=== PATIENT | male | born 1985 | race Caucasian/White ===

== ENCOUNTER 2018-01-19 12:04 | Emergency (ER) | payer SELFPAY ==
[~2018-01-19] VITALS: Ht 182.9 cm; Wt 81.6 kg
[2018-01-19] MEDS ORDERED: Tetanus/Diptheria/Pertussis Vaccine 0.5ml Syr IM ONE (12:30)
[2018-01-19] MEDS ORDERED: Bacitracin Oint UD TOPIC ONE (12:30)
--- NOTE | 2018-01-19 12:32 | Emergency Room Report ---
History of Present Illness General Chief Complaint: Animal Bite Present Illness HPI 32 YO male presents to the ED C/O squirrel bite around 10 am this morning. pt. reports he was feeding the squirrel and was bite. He denies pain. He sates that it did not bleed. Pt. states he had his tetanus vaccination years ago when he was in school. pt. Denies allergies to medications. the bite was sustained on the right middle finger. pt. is right hand dominant. Pt. states he tried to clean the wound but only had perfume and he sprayed that because it has alcohol. Allergies: Coded Allergies: No Known Allergies (Unverified , 01/19/18) Patient History Past Medical History: see triage record Past Surgical History: none Pertinent Family History: none Reviewed Nursing Documentation: PMH: Agreed; PSxH: Agreed Review of Systems All Other Systems: negative except mentioned in HPI Physical Exam Vital Signs Date Time Temp Pulse Resp B/P (MAP) Pulse Ox O2 Delivery O2 Flow Rate FiO2 01/19/18 12:10 98.4 70 16 125/85 95 Room Air 98.4 Sp02 EP Interpretation: reviewed, normal General Appearance: no apparent distress, alert, GCS 15, non-toxic Head: normocephalic, atraumatic ENT: hearing grossly normal, normal voice Neck: full range of motion Respiratory: normal breath sounds, speaking full sentences Cardiovascular #1: regular rate, rhythm, normal capillary refill Musculoskeletal: back normal, gait/station normal, normal range of motion, non- tender Neurologic: alert, oriented x3, responsive, motor strength/tone normal, sensory intact, speech normal, grossly normal Psychiatric: judgement/insight normal Skin: normal color, no rash, warm/dry, well hydrated, other - small superficial break in the skin on the finger pad of the right middle finger, does not appear to extend through the entire dermis, no erythema, warmth, blisters, vessicles, blood or discharge. no obvious ST FB. Medical Decision Making PA Attestation Dr. Leo is my supervising Physician whom patient management has been discussed with. Diagnostic Impression: Primary Impression: Bitten by squirrel, initial encounter ER Course 32 YO male presents to the ED C/O squirrel bite around 10 am this morning. pt. reports he was feeding the squirrel and was bite. He denies pain. He sates that it did not bleed. Pt. states he had his tetanus vaccination years ago when he was in school. pt. Denies allergies to medications. the bite was sustained on the right middle finger. pt. is right hand dominant. Pt. states he tried to clean the wound but only had perfume and he sprayed that because it has alcohol. Ddx considered but are not limited to Cellulitis, rabies, fracture, neurovascular compromise of extremity. Vital signs: are WNL, pt. is afebrile H&PE are most consistent with animal bite- superficial , did not penetrate the entire dermis. no evidence of infection at this time. ORDERS: none required at this time, the diagnosis is clinical ED INTERVENTIONS: -Tetanus vaccination is administered. -Wound cleaning -Bacitracin and sterile dressing was applied by the RN. DISCHARGE: At this time pt. is stable for d/c to home. Will provide printed patient care instructions, and any necessary prescriptions. Care plan and follow up instructions have been discussed with the patient prior to discharge. Last Vital Signs Date Time Temp Pulse Resp B/P (MAP) Pulse Ox O2 Delivery O2 Flow Rate FiO2 01/19/18 12:10 98.4 70 16 125/85 95 Room Air 98.4 Disposition: HOME, SELF-CARE Condition: Stable Patient Instructions: Animal Bite Additional Instructions: Take medications as directed. Follow up with a Primary Care Provider in 3-5 days, even if your symptoms have resolved. --Please review list of primary care clinics, if you do not already have a primary care provider Return sooner to ED if new symptoms occur, or current symptoms become worse. - Please note that this Emergency Department Report was dictated using [employer] all source intelligence technology software, occasionally this can lead to erroneous entry secondary to interpretation by the dictation equipment. Roxana Ruvalcaba Jan 19, 2018 12:32
[2018-01-19] MEDS ORDERED: AUGMENTIN 875-1 EAC1 ORAL (12:33)
[2018-01-19] MEDS ORDERED: BACITRACIN-P28.35 GM TP (12:33)
[2018-01-19 12:38] VITALS: BP 125/85
== END 2018-01-19 12:39 | disposition home or self-care (01) ==
LOC: EMR 12:32
DX: S60.472A Other superficial bite of right middle finger, initial encounter (principal); W53.21XA Bitten by squirrel, initial encounter; Y92.9 Unspecified place or not applicable; Z23 Encounter for immunization
CPT/HCPCS: 90471; 90715; 99282